=== PATIENT | male | born 1935 | race Caucasian/White ===

== ENCOUNTER 2020-05-19 14:06 | Inpatient (IN) | payer MEDICAID, SELFPAY ==
[~2020-05-19] VITALS: Ht 162.6 cm; Wt 67.1 kg
[2020-05-19 15:29] VITALS: BP 170/70
[2020-05-19 15:30] LABS: BASOPHILS % (AUTO) 0.5 % (0.0-2.0); EOSINOPHILS % (AUTO) 0.1 % (0.0-4.0); HEMATOCRIT 36.3 % (36-52); HEMOGLOBIN 11.6 g/dL (12.0-18.0); LYMPHOCYTES # (AUTO) 0.5 K/uL (2.0-11.5); LYMPHOCYTES % (AUTO) 26.8 % (20.5-51.1); MEAN CORPUSCULAR HEMOGLOBIN 30 pg (27-31); MEAN CORPUSCULAR HGB CONC 32 g/dL (33-37); MEAN CORPUSCULAR VOLUME 92.6 fL (80-94); MONOCYTES # (AUTO) 0.2 K/uL (0.8-1.0); MONOCYTES % (AUTO) 9.8 % (1.7-9.3); NEUTROPHILS # (AUTO) 1.3 K/uL (1.8-7.7); NEUTROPHILS % (AUTO) 62.8 % (42.2-75.2); PLATELET COUNT (AUTO) 110 K/uL (140-450); RED BLOOD CELL COUNT(AUTO) 3.92 MIL/uL (4.20-6.10); RED CELL DISTRIBUTION WIDTH 17.1 % (11.6-13.7); WHITE BLOOD COUNT (AUTO) 2.1 K/uL (4.8-10.8)
[2020-05-19 15:45] LABS: PROTHROMBIN TIME 11.3 secs (10.8-13.4)
[2020-05-19 15:58] LABS: ALBUMIN 2.7 g/dL (3.4-5.0); ANION GAP 11.8 (8-16); ASPARTATE AMINOTRANSFERASE 20 U/L (15-37); CARBON DIOXIDE 32.5 mmol/L (21-32); CHLORIDE 98 mmol/L (98-107); GLUCOSE 90 mg/dL (74-106); POTASSIUM 4.3 mmol/L (3.5-5.1); SODIUM SERUM 138 mmol/L (136-145); TOTAL BILIRUBIN 1.1 mg/dL (0.0-1.0); UREA NITROGEN, BLOOD 36 mg/dL (7-18)
[2020-05-19 16:23] LABS: CREATININE 8.2 mg/dL (0.6-1.3)
[2020-05-19 17:15] LABS: C-REACTIVE PROTEIN QUANT 10.1 mg/dL (0.0-0.9)
[2020-05-19 17:19] LABS: LACTATE DEHYDROGENASE 268 U/L (85-227)
[2020-05-19] MEDS ORDERED: AZITHROMYCIN 500 MG in DEXTROSE 5% 250 ML IV ONE (18:45)
--- NOTE | 2020-05-19 20:10 | NUR ---
PT MOVED TO ER BED 10
[2020-05-19] MEDS ORDERED: DEXAMETHASONE 4 MG/ML VIAL IVP ONE (20:20)
[2020-05-19] MEDS ORDERED: AZITHROMYCIN 500 MG INJ VIAL IV ONE (20:22)
[2020-05-19] MEDS ORDERED: cefTRIAXone 1,000 MG VIAL ONE (20:23)
--- NOTE | 2020-05-19 20:30 | NUR ---
pt does not produce urine, unable to collected urine sample. ERMD made aware.
--- NOTE | 2020-05-19 20:30 | NUR ---
84 y/o male presented to ED c/o SOB and + productive cough x 2 weeks. Pt states is has been progressively getting worse. Pt has not been tested for Covid and denies being around anyone w/ covid. Pt A/O x 4 w/ lethargy. RR even and labored , lung sounds diminished BL bases. per EMS pt is at 82% on Room Air.Current oxygen level 97% on 2L NC. S1S2 noted. Observed BL lower extremity pitting edema. Observed Dialysis shunt on left arm. Pt placed in bed lokced and in lowest position, HOB elevated, side rail x 2 for pt safety. Pt connected to machine milker. VSS. No acute distress noted. pmh: HTN, Hyperlipidemia, ESRD (M/W/F) - rec'vd last dialysis yesterday ax: NKA per pt
--- NOTE | 2020-05-19 22:25 | NUR ---
Covid novel, flu and RSV swabs collected and handed to lab.
--- NOTE | 2020-05-19 23:18 | NUR ---
Per patient authorization spoke w/ granddaughter Angie regarding patient status at this time.
--- NOTE | 2020-05-20 02:00 | NUR ---
Pt sleeping in bed, locked and in lowest position, HOB elevated, side rail x 2 for pt safety. VSS. No acute distress noted.
--- NOTE | 2020-05-20 05:36 | NUR ---
pt sleeping in bed, locked and in lowest position ,hob elevated, side rail x2 for pt safety. Oxygen level 95% on 2L NC. Visible rise and fall of chest. VSS.
[2020-05-20] MEDS ORDERED: ZOLPIDEM 5 MG TAB PO PRN (06:25)
[2020-05-20] MEDS ORDERED: DOCUSATE SODIUM 100 MG GELCAP PO PRN (06:25)
[2020-05-20] MEDS ORDERED: ALBUTEROL HFA MDI 90 MCG/ACTUATION 8 GM INH PRN (06:25)
[2020-05-20] MEDS ORDERED: LORazepam 2 MG/ML VIAL IM/IVP PRN (06:25)
[2020-05-20] MEDS ORDERED: ACETAMINOPHEN 325 MG TAB PO PRN (06:25)
[2020-05-20] MEDS ORDERED: MORPHINE SULFATE 2 MG/ML SYR IVP PRN (06:25)
[2020-05-20] MEDS ORDERED: ONDANSETRON 4 MG/2 ML VIAL IVP PRN (06:25)
[2020-05-20] MEDS ORDERED: NACL 0.9% 1,000 ML IV SCH (06:25)
[2020-05-20] MEDS ORDERED: HYDROcodone/APAP 5/325 MG 1 TAB TAB PO PRN (06:25)
--- NOTE | 2020-05-20 07:25 | NUR ---
Report provided to MARA Purvis for transfer of care.
--- NOTE | 2020-05-20 07:30 | NUR ---
PATIENT HAS BEEN SCREENED AND CATEGORIZED MODERATE NUTRITION RISK. PATIENT WILL BE SEEN WITHIN 3-5 DAYS OF ADMISSION. 05/22/20 - 05/24/20 AMNA WOOD MBA,RD
--- NOTE | 2020-05-20 08:00 | NUR ---
PT RESTING IN BED AT THIS TIME, RESP EVEN AND UNLABORED, VSS
[2020-05-20 08:23] LABS: RSV NEGATIVE (NEGATIVE)
[2020-05-20 08:56] LABS: BASOPHILS % (AUTO) 0.7 % (0.0-2.0); HEMATOCRIT 42.6 % (36-52); HEMOGLOBIN 13.7 g/dL (12.0-18.0); LYMPHOCYTES # (AUTO) 0.6 K/uL (2.0-11.5); LYMPHOCYTES % (AUTO) 14.9 % (20.5-51.1); MEAN CORPUSCULAR HEMOGLOBIN 30 pg (27-31); MEAN CORPUSCULAR HGB CONC 32 g/dL (33-37); MEAN CORPUSCULAR VOLUME 92.1 fL (80-94); MONOCYTES # (AUTO) 0.1 K/uL (0.8-1.0); MONOCYTES % (AUTO) 2.8 % (1.7-9.3); NEUTROPHILS # (AUTO) 3.1 K/uL (1.8-7.7); NEUTROPHILS % (AUTO) 81.6 % (42.2-75.2); PLATELET COUNT (AUTO) 113 K/uL (140-450); RED BLOOD CELL COUNT(AUTO) 4.63 MIL/uL (4.20-6.10); WHITE BLOOD COUNT (AUTO) 3.8 K/uL (4.8-10.8)
[2020-05-20] MEDS: VITAMIN D 400 IU TAB PO SCH (09:00)
[2020-05-20] MEDS: ASCORBIC ACID 500 MG TAB PO SCH (09:00)
[2020-05-20] MEDS ORDERED: ENOXAPARIN 40 MG/0.4 ML SYR SUBQ SCH (09:00)
[2020-05-20] MEDS: AZITHROMYCIN 250 MG TAB PO SCH (09:00)
[2020-05-20 09:24] LABS: ALBUMIN 2.3 g/dL (3.4-5.0); ASPARTATE AMINOTRANSFERASE 23 U/L (15-37); CARBON DIOXIDE 29.2 mmol/L (21-32); CHLORIDE 99 mmol/L (98-107); GLUCOSE 107 mg/dL (74-106); POTASSIUM 5.2 mmol/L (3.5-5.1); SODIUM SERUM 137 mmol/L (136-145); TOTAL BILIRUBIN 0.6 mg/dL (0.0-1.0); UREA NITROGEN, BLOOD 47 mg/dL (7-18)
[2020-05-20 09:28] LABS: PROTHROMBIN TIME 11.4 secs (10.8-13.4)
[2020-05-20 09:33] LABS: CHOL/HDL RATIO 5.2 (1-4.5); FREE T4 (FREE THYROXINE) 1.13 ng/dL (0.76-1.46); MAGNESIUM 2.4 mg/dL (1.8-2.4); THYROID STIMULATING HORMONE 1.3 uIU/mL (0.34-3.74)
--- NOTE | 2020-05-20 10:00 | NUR ---
ASSUMED CARE OF PATIENT FROM MARA PARKS.
--- NOTE | 2020-05-20 10:38 | NUR ---
SOCIAL WORK NOTE: Patient's Orientation Unable To Assess Information Provided By JUANY HAILE - Comments SW WAS UNABLE TO MEET PATIENT AT BEDSIDE DUE TO MEDICAL CONDITION. SW COMPLETED ASSESSMENT WITH PATIENT'S . Accounting Technician, Realtionship and Phone Number JUANY HAILE [phone] VALENCIAELENO HAILE DAUGHTER [phone] Healthcare Power of Developing Machine Tender No Does Patient Have a POLST No Identifying Problems No Social Work Triggers Is A Social Work Consult Needed No Mandate Report Filed No Explanation Of Identifying Problems PATIENT IS AN 84-YEAR-OLD MALE ADMITTED FOR COVID, PNEUMONIA, AND HYPOXIA. PATIENT HAS PMHX OF HYPERTENSION, BPH, ESRD, AND HYPOTHYROIDISM. Admitted From Home Pre-Admission Level Of Functioning Status Independent/Ambulatory Prior Resources/Services Used In Last 12 Months No Prior Resources Used Prior DME No Prior DME Used Dialysis Hemodialysis Name And Phone Number of Dialysis Facility [facility]. ESRD Outpatient Days W Dialysis Comments WAS UNAWARE OF ADDITIONAL INFORMATION. Living Situation Apartment Lives With Family Patient Had Caregiver No Home Support No Caregiver Issues Financial Issues No Known Financial Issue Referral To The Financial Counselor Needed No Factors/Needs No D/C Needs Identified Pt/Rep Participated In Discharge Plan Yes Patient/Family Agress With Discharge Plan Yes Discharge Plan Comments TENTATIVE DISCHARGE PLAN IS FOR PATIENT TO RETURN HOME. DC Plan Status Initiated
[2020-05-20 11:59] LABS: CREATININE 8.9 mg/dL (0.6-1.3)
--- NOTE | 2020-05-20 12:03 | NUR ---
assumed patient care 84 years old male on HD presents to er with gen weakness no cob cp awaiting for admit tele bed.
--- NOTE | 2020-05-20 12:03 | NUR ---
REPORT GIVEN TO MARA CASON. ALL CARE TRASNFERRED.
--- NOTE | 2020-05-20 13:19 | NUR ---
SPOKE TO DR. HANDLEY. DR. HANDLEY AGREED TO BE ON SERVICE AND REQUESTED WE CALL DIALYSIS SERVICE. SUPERVISOR EVAPORATOR NOTIFIED.
--- NOTE | 2020-05-20 16:16 | NUR ---
HD completed 1.4 liter removed tolerated well denies sov cp, resting in [facility].
--- NOTE | 2020-05-20 16:46 | NUR ---
PT MOVED TO BED 10-A.
--- NOTE | 2020-05-20 18:00 | NUR ---
pt moved to new room. connected to cardiac monitoring and pulse oximetry. no other needs at this time.
--- NOTE | 2020-05-20 21:00 | NUR ---
pt in bed resting. no needs at this time. connected to cardiac monitoring.
[2020-05-20] MEDS ORDERED: cefTRIAXone 500 MG VIAL ONE (22:31)
--- NOTE | 2020-05-20 23:49 | NUR ---
awake and alert. no questions or needs at this time. pt is in no distress. connected to 2LPM n/c. VSS.
--- NOTE | 2020-05-21 01:12 | NUR ---
VSS. no apparent needs at this time.
--- NOTE | 2020-05-21 03:30 | NUR ---
REPORT REICEIVED FROM JUSTIN TERRY FOR CONTINUITY OF CARE
--- NOTE | 2020-05-21 05:54 | NUR ---
XRAY AT BEDSIDE
--- NOTE | 2020-05-21 07:11 | NUR ---
REPORT GIVEN TO GHISLAINE TERRY FOR CONTINUITY OF CARE
--- NOTE | 2020-05-21 08:30 | NUR ---
PT LAYING IN BED QUIETLY, WITH EYES CLOSED. AROUSABLE TO NAME. CHEST RISES, AND FALLS SYMMETRICALLY, NO DISTRESS NOTED. VSS. SIDE RAIL X2, BED IN LOW POSITION WILL CONTINUE TO MONITOR.
--- NOTE | 2020-05-21 09:04 | NUR ---
PT ADMINISTERED AM MEDS. PT TOLERATED WELL, WILL CONTINUE TO MONITOR.
[2020-05-21] MEDS: VITAMIN D 400 IU TAB PO SCH (09:45)
[2020-05-21] MEDS: ASCORBIC ACID 500 MG TAB PO SCH (09:46)
[2020-05-21] MEDS: AZITHROMYCIN 250 MG TAB PO SCH (09:46)
--- NOTE | 2020-05-21 10:30 | NUR ---
PT'S GRANDDAUGHTER PRESENTS TO ER WITH QUESTIONS REGARDING PT'S CARE, AND STATUS. GRANDDAUGHTER INFORMED OF PLAN OF CARE FOR PT. SHE STATES SHE WILL CALL LATER FOR ANOTHER UPDATE.
[2020-05-21 10:45] LABS: BASOPHILS % (AUTO) 0.2 % (0.0-2.0); HEMATOCRIT 42.2 % (36-52); HEMOGLOBIN 13.3 g/dL (12.0-18.0); LYMPHOCYTES # (AUTO) 0.4 K/uL (2.0-11.5); LYMPHOCYTES % (AUTO) 8.3 % (20.5-51.1); MEAN CORPUSCULAR HEMOGLOBIN 30 pg (27-31); MEAN CORPUSCULAR HGB CONC 32 g/dL (33-37); MEAN CORPUSCULAR VOLUME 93.8 fL (80-94); MONOCYTES # (AUTO) 0.3 K/uL (0.8-1.0); MONOCYTES % (AUTO) 6.1 % (1.7-9.3); NEUTROPHILS # (AUTO) 4.5 K/uL (1.8-7.7); NEUTROPHILS % (AUTO) 85.4 % (42.2-75.2); PLATELET COUNT (AUTO) 149 K/uL (140-450); RED CELL DISTRIBUTION WIDTH 17.4 % (11.6-13.7); WHITE BLOOD COUNT (AUTO) 5.3 K/uL (4.8-10.8)
[2020-05-21 11:18] LABS: ANION GAP 14.2 (8-16); CARBON DIOXIDE 26.8 mmol/L (21-32); CHLORIDE 100 mmol/L (98-107); GLUCOSE 120 mg/dL (74-106); SODIUM SERUM 136 mmol/L (136-145); UREA NITROGEN, BLOOD 53 mg/dL (7-18)
[2020-05-21 11:21] LABS: MAGNESIUM 1.6 mg/dL (1.8-2.4); PHOSPHORUS 5.7 mg/dL (2.5-4.9)
[2020-05-21 11:22] LABS: CREATININE 8.5 mg/dL (0.6-1.3); LACTATE DEHYDROGENASE 293 U/L (85-227)
--- NOTE | 2020-05-21 11:27 | NUR ---
PT APPEARS TO BE SLEEPING, CHEST RISES, AND FALLS SYMMETRICALLY. NO DISTRESS NOTED. VSS. SIDE RAIL X2, BED IN LOW POSITION, WILL CONTINUE TO MONITOR.
[2020-05-21] MEDS ORDERED: MAG SULF 2000 MG/WATER PREMIX 50 ML IV SCH (12:00)
--- NOTE | 2020-05-21 12:32 | NUR ---
PT RESTING QUIETLY IN BED. VSS, R/R EQUAL, AND UNLABORED. NO DISTRESS VERBALIZED AT THIS TIME. SIDE RAIL X2, BED IN LOW POSITION, WILL CONTINUE TO MONITOR.
--- NOTE | 2020-05-21 14:06 | NUR ---
PT REQUESTED TO USE BED GRANADOS. LINEN AND GOWN CHANGED, AND [facility] PROVIDED.
--- NOTE | 2020-05-21 14:16 | NUR ---
PT PROVIDED LUNCH TRAY. VSS, R/R EQUAL, AND UNLABORED. BED IN LOW POSITION, SIDE RAIL X2 WILL CONTINUE TO MONITOR
--- NOTE | 2020-05-21 19:00 | NUR ---
pt given dinner tray
--- NOTE | 2020-05-21 19:20 | NUR ---
Report received from MARA Rodriguez for continuation of care.
--- NOTE | 2020-05-21 19:52 | NUR ---
Pt eating dinner, no acute distress noted . VSS. No acute distress noted.
--- NOTE | 2020-05-21 20:30 | NUR ---
Pt ate 80% of dinner.
[2020-05-21] MEDS ORDERED: cefTRIAXone 1,000 MG VIAL ONE (20:37)
--- NOTE | 2020-05-22 00:35 | NUR ---
pt sleeping in bed, locked and in lowest position, HOB elevated, side rail x2 for pt safety. VSS . Visible rise and fall of chest. RR even and unlabored. No acute distress noted.
--- NOTE | 2020-05-22 02:37 | NUR ---
Pt sleeping in bed, locked and in lowest position, HOB elevated, side rail x2 for pt safety. VSS. No acute distress noted.
--- NOTE | 2020-05-22 04:00 | NUR ---
Pt resting in bed, nasal cannula readjusted on pt. VSS. Oxygen level 94% on 2L, NC. No acute distress noted at this time.
--- NOTE | 2020-05-22 07:22 | NUR ---
Report provided to MARA Seth for transfer of care.
[2020-05-22] MEDS: VITAMIN D 400 IU TAB PO SCH (08:26)
[2020-05-22] MEDS: ASCORBIC ACID 500 MG TAB PO SCH (08:26)
[2020-05-22] MEDS: AZITHROMYCIN 250 MG TAB PO SCH (08:27)
--- NOTE | 2020-05-22 09:29 | NUR ---
PT RESTING WITH EYES CLOSED, BREATHING EVEN AND UNLABORED. WILL CONTINUE TO MONITOR.
--- NOTE | 2020-05-22 10:13 | NUR ---
PT ATE BREAKFAST AT THIS TIME
[2020-05-22 10:45] LABS: BASOPHILS % (AUTO) 0.2 % (0.0-2.0); HEMATOCRIT 40.7 % (36-52); HEMOGLOBIN 13.1 g/dL (12.0-18.0); LYMPHOCYTES # (AUTO) 0.5 K/uL (2.0-11.5); LYMPHOCYTES % (AUTO) 8.3 % (20.5-51.1); MEAN CORPUSCULAR HEMOGLOBIN 30 pg (27-31); MEAN CORPUSCULAR HGB CONC 32 g/dL (33-37); MEAN CORPUSCULAR VOLUME 92.1 fL (80-94); MONOCYTES # (AUTO) 0.3 K/uL (0.8-1.0); MONOCYTES % (AUTO) 5.3 % (1.7-9.3); NEUTROPHILS # (AUTO) 4.9 K/uL (1.8-7.7); NEUTROPHILS % (AUTO) 86.2 % (42.2-75.2); PLATELET COUNT (AUTO) 154 K/uL (140-450); RED BLOOD CELL COUNT(AUTO) 4.41 MIL/uL (4.20-6.10); RED CELL DISTRIBUTION WIDTH 17.3 % (11.6-13.7); WHITE BLOOD COUNT (AUTO) 5.7 K/uL (4.8-10.8)
--- NOTE | 2020-05-22 11:18 | NUR ---
TALKED TO DAUGHTER VALENCIA TO GIVE UPDATES ABOUT PT
[2020-05-22 11:29] LABS: ALBUMIN 2.4 g/dL (3.4-5.0); ANION GAP 12.2 (8-16); ASPARTATE AMINOTRANSFERASE 24 U/L (15-37); CARBON DIOXIDE 29.8 mmol/L (21-32); CHLORIDE 99 mmol/L (98-107); GLUCOSE 100 mg/dL (74-106); LACTATE DEHYDROGENASE 268 U/L (85-227); MAGNESIUM 2.3 mg/dL (1.8-2.4); SODIUM SERUM 136 mmol/L (136-145); TOTAL BILIRUBIN 0.5 mg/dL (0.0-1.0)
[2020-05-22 11:47] LABS: CREATININE 9.3 mg/dL (0.6-1.3); UREA NITROGEN, BLOOD 67 mg/dL (7-18)
--- NOTE | 2020-05-22 13:19 | NUR ---
+ covid result received from lab. Copy given to infection control
[2020-05-22] MEDS: hydrALAZINE 25 MG TAB PO SCH (13:43)
--- NOTE | 2020-05-22 13:51 | NUR ---
PT ALERT AND AWAKE, BREATHING EVEN AND UNLABORED. PT ATE LUNCH
--- NOTE | 2020-05-22 16:52 | NUR ---
DC PLANNIN YRS OLD MALE PATIENT WAS ADMITTED FROM HOME WITH A DX OF COVID PNEUMONIA, HYPOXIA. RAPID AND PCR COVID TEST POSITIVE. STARTED COVID TREATMENT , ROCEPHIN AND AZITHROMYCIN. O2 SAT 93% WITH O2 2L/NC. CONSULTED WITH PULMO , ID AND NEPHRO FOR HEMODIALYSIS. DC PLAN TO GO HOME WHEN STABLE CM TO FOLLOW. Addendum: 05/22/20 at 1705 by Meg Ahn CM DC HEAD BATCHER: SPOKE TO DEION AT [facility] [place] [phone] TO NOTIFY THEM PATIENT IS COVID POSITIVE. THEY ARE AWARE THEY PROVIDED ME WITH PATIENTS NEW CHAIR TIME AT 6:00 PM ON Addendum: 05/25/20 at 1018 by Meg Ahn CM DC HEAD BATCHER: RECEIVE ORDER FOR HOME O2 FAXED TO [facility]. CALLED FROY MARTINEZ NO ANSWER LEFT A VOICEMAIL WILL FOLLOW UP. Addendum: 05/25/20 at 1705 by Meg Ahn CM DC HEAD BATCHER: SPOKE TO KYRA FROM [facility] [phone] OPT 3 SHE IS WAITING ON AUTH FROM [facility]. SPOKE TO MICHELLE AT [facility] [phone] [phone] SHE STATED THAT SHE GAVE VERBAL [facility]. [facility] CAN NOT DISPATCH UNTIL THEY RECEIVE HARD COPY FROM [facility]. Addendum: 05/28/20 at 1345 by Ruthy Bradley RN DC PLANNING: PT HAS A DC ORDER WITH HOME HEALTH FOR IV ABX CALLED [facility] SPOKE WITH FRANCE MCDUFFIE STATED TO FAX IT TO [facility] AND FAXED. FROY TO FOLLOW Addendum: 05/28/20 at 1406 by Meg Ahn CM REJI GÓMEZ: SPOKE TO BRAYAN AT [facility] [phone] HIS PHARMACIST IS REVIEWING IT AND WILL BE CONTACTING ME BACK SHORTLY. I PROVIDED HIM WITH THE NUMBER FOR [facility] Addendum: 05/28/20 at 1456 by Meg Ahn CM REJI GÓMEZ: RECEIVED A CALL FROM BRAYAN AT [facility]. EVERY IS SET UP FOR PATIENT IV ABX WILL BE DELIVERED TO PATIENTS HOME TONIGHT. Addendum: 05/28/20 at 1502 by Meg Mayeda CM DC DALIA: NOTIFIED CHARGE NURSE CARLO THAT EVERYTHING HAS BEEN SET UP. NOTIFIED DR. MCGREGOR WELL. HE STATED PT CAN DC. Addendum: 05/28/20 at 1510 by Meg Ahn CM REJI GÓMEZ: SPOKE TO JENNIFER AT [facility] [phone] TO CONFIRM CHAIR TIME . SHE IS GOING TO CONTACT ME BACK Addendum: 05/28/20 at 1516 by Meg Ahn CM DC HEAD BATCHER: RECEIVED A CALL BACK FROM MICHELLE AT [facility] [place]. PATIENTS CHAIR TIME HAS BEEN MOVED TO ,SAT AT 7:15 PM IN [place]. [id number] [facility] [place] [id number]. [phone]. NOTIFIED [facility] THEY WILL BE OUT AT PATIENTS [place] TOMORROW FOR FIRST DOES OF ABX Addendum: 05/28/20 at 1542 by Meg Ahn CM DC HEAD BATCHER: NOTIFIED PATIENTS ABOUT PATIENT IV ABX THAT WILL BE DELIVERED TONIGHT. ALSO DISCUSSED PATIENTS NEW CHAIR TIME AND LOCATION
--- NOTE | 2020-05-22 19:18 | NUR ---
REPORT GIVEN TO KEESHA TERRY, CHUNGSNFDIRK OF CARE AT THIS TIME
--- NOTE | 2020-05-22 19:40 | NUR ---
PT TX FROM BED 10 TO BED 1, RECONNECTED TO MONITOR
--- NOTE | 2020-05-22 19:40 | NUR ---
REPORT RECEIVED FROM MARA ESPARZA AND [facility].
--- NOTE | 2020-05-22 19:49 | NUR ---
DIAYLSIS NURSE AT BEDSIDE
[2020-05-22] MEDS: carvediloL 12.5 MG TAB PO SCH (21:00)
--- NOTE | 2020-05-22 21:11 | NUR ---
MEDS DELAYED D/T PT GETTING DIALYSIS
--- NOTE | 2020-05-22 21:42 | NUR ---
DIALYSIS COMPLETE, 3L OF FLUID OUT
[2020-05-22] MEDS ORDERED: cefTRIAXone 1,000 MG VIAL ONE (22:12)
[2020-05-22] MEDS ORDERED: carvediloL 6.25 MG TAB ONE (22:13)
--- NOTE | 2020-05-22 23:12 | NUR ---
PT LAYING IN BED ASLEEP AT THIS TIME. VSS. BED RAILS UP AND BED IN LOWEST POSITION FOR SAFETY.
--- NOTE | 2020-05-23 01:40 | NUR ---
PT SLEEPING IN BED. PT CONNECTED TO MONITOR, ALL VSS.
--- NOTE | 2020-05-23 05:32 | NUR ---
Patient appears to be resting comfortably in bed. Vital Signs within normal limits. Respirations even and unlabored.
[2020-05-23] MEDS: LEVOTHYROXINE 0.025 MG TAB PO SCH (07:30)
--- NOTE | 2020-05-23 07:57 | NUR ---
assumed patient care 10 years old male with covid positive on HD last treatment yesterday in ED, no sob occasional non congested cough no acute resp changes awaiting for admit bed.
[2020-05-23] MEDS: carvediloL 12.5 MG TAB PO SCH ×2 (09:00→20:22)
[2020-05-23] MEDS: amLODIPine 5 MG TAB PO SCH (09:00)
[2020-05-23] MEDS: VITAMIN D 400 IU TAB PO SCH (09:00)
[2020-05-23] MEDS: hydrALAZINE 25 MG TAB PO SCH (09:00)
[2020-05-23] MEDS: TAMSULOSIN 0.4 MG CAP PO SCH (09:00)
[2020-05-23] MEDS: ASCORBIC ACID 500 MG TAB PO SCH (09:00)
[2020-05-23] MEDS: AZITHROMYCIN 250 MG TAB PO SCH (09:00)
[2020-05-23] MEDS ORDERED: carvediloL 6.25 MG TAB ONE (11:09)
[2020-05-23] MEDS ORDERED: hydrALAZINE 10 MG TAB ONE (11:10)
--- NOTE | 2020-05-23 13:56 | NUR ---
PATIENT REASSESS no acute resp distress, no congestion, occasional dry cough noted.
[2020-05-23 15:03] LABS: BASOPHILS % (AUTO) 0.8 % (0.0-2.0); HEMATOCRIT 41.5 % (36-52); HEMOGLOBIN 13.3 g/dL (12.0-18.0); LYMPHOCYTES # (AUTO) 0.4 K/uL (2.0-11.5); LYMPHOCYTES % (AUTO) 7.1 % (20.5-51.1); MEAN CORPUSCULAR HEMOGLOBIN 30 pg (27-31); MEAN CORPUSCULAR HGB CONC 32 g/dL (33-37); MEAN CORPUSCULAR VOLUME 91.9 fL (80-94); MONOCYTES # (AUTO) 0.2 K/uL (0.8-1.0); MONOCYTES % (AUTO) 4.3 % (1.7-9.3); NEUTROPHILS # (AUTO) 4.6 K/uL (1.8-7.7); NEUTROPHILS % (AUTO) 87.8 % (42.2-75.2); PLATELET COUNT (AUTO) 158 K/uL (140-450); RED BLOOD CELL COUNT(AUTO) 4.52 MIL/uL (4.20-6.10); RED CELL DISTRIBUTION WIDTH 16.9 % (11.6-13.7); WHITE BLOOD COUNT (AUTO) 5.3 K/uL (4.8-10.8)
[2020-05-23 15:34] LABS: ALBUMIN 2.5 g/dL (3.4-5.0); ANION GAP 14.2 (8-16); ASPARTATE AMINOTRANSFERASE 32 U/L (15-37); CARBON DIOXIDE 28.4 mmol/L (21-32); CHLORIDE 98 mmol/L (98-107); GLUCOSE 122 mg/dL (74-106); LACTATE DEHYDROGENASE 248 U/L (85-227); MAGNESIUM 2.1 mg/dL (1.8-2.4); PHOSPHORUS 3.9 mg/dL (2.5-4.9); POTASSIUM 4.6 mmol/L (3.5-5.1); SODIUM SERUM 136 mmol/L (136-145); TOTAL BILIRUBIN 0.5 mg/dL (0.0-1.0)
[2020-05-23 16:15] LABS: CREATININE 8.3 mg/dL (0.6-1.3); UREA NITROGEN, BLOOD 60 mg/dL (7-18)
--- NOTE | 2020-05-23 18:01 | NUR ---
patient alert, no sob denies pain tolerated po well.
--- NOTE | 2020-05-23 18:31 | NUR ---
report endorsed to charge nurse Ray all questions answered.
--- NOTE | 2020-05-23 19:30 | NUR ---
Report received from MARA Gotti for continuation of care.
--- NOTE | 2020-05-23 20:22 | NUR ---
Pt heart rate 57 bpm , Carvidelol held per parameters .
--- NOTE | 2020-05-23 23:12 | NUR ---
per pt authorization spoke w/ daughter Merlyn , updated her on pt status.
--- NOTE | 2020-05-24 | NUR ---
Pt resting in bed, locked and in lowest position, HOB elevated, side rail x 2 for pt safety. VSS. No acute distress noted.
--- NOTE | 2020-05-24 04:10 | NUR ---
Pt sleeping, visible rise and fall of chest. RR even and unlabored. VSS. No acute distress noted.
[2020-05-24] MEDS: LEVOTHYROXINE 0.025 MG TAB PO SCH (07:30)
--- NOTE | 2020-05-24 07:32 | NUR ---
Report given to MARA Urrutia for transfer of care.
[2020-05-24] MEDS: ASCORBIC ACID 500 MG TAB PO SCH (09:00)
[2020-05-24] MEDS: TAMSULOSIN 0.4 MG CAP PO SCH (09:00)
[2020-05-24] MEDS: hydrALAZINE 25 MG TAB PO SCH (09:00)
[2020-05-24] MEDS: amLODIPine 5 MG TAB PO SCH (09:00)
[2020-05-24] MEDS: carvediloL 12.5 MG TAB PO SCH ×2 (09:00→20:27)
[2020-05-24] MEDS: VITAMIN D 400 IU TAB PO SCH (09:00)
[2020-05-24 10:30] LABS: BASOPHILS % (AUTO) 0.4 % (0.0-2.0); HEMATOCRIT 41.8 % (36-52); HEMOGLOBIN 13.6 g/dL (12.0-18.0); LYMPHOCYTES # (AUTO) 0.4 K/uL (2.0-11.5); LYMPHOCYTES % (AUTO) 11.4 % (20.5-51.1); MEAN CORPUSCULAR HEMOGLOBIN 30 pg (27-31); MEAN CORPUSCULAR HGB CONC 33 g/dL (33-37); MEAN CORPUSCULAR VOLUME 91.4 fL (80-94); MONOCYTES # (AUTO) 0.2 K/uL (0.8-1.0); MONOCYTES % (AUTO) 6.5 % (1.7-9.3); NEUTROPHILS % (AUTO) 81.7 % (42.2-75.2); PLATELET COUNT (AUTO) 159 K/uL (140-450); RED BLOOD CELL COUNT(AUTO) 4.58 MIL/uL (4.20-6.10); RED CELL DISTRIBUTION WIDTH 16.9 % (11.6-13.7); WHITE BLOOD COUNT (AUTO) 3.6 K/uL (4.8-10.8)
[2020-05-24 10:56] LABS: ANION GAP 15.7 (8-16); CARBON DIOXIDE 26.9 mmol/L (21-32); CHLORIDE 98 mmol/L (98-107); GLUCOSE 145 mg/dL (74-106); POTASSIUM 4.6 mmol/L (3.5-5.1); SODIUM SERUM 136 mmol/L (136-145)
[2020-05-24 11:25] LABS: CREATININE 9.4 mg/dL (0.6-1.3); UREA NITROGEN, BLOOD 73 mg/dL (7-18)
[2020-05-24 11:30] VITALS: BP 128/62
--- NOTE | 2020-05-24 11:30 | NUR ---
TRANSFERRED TO TELE FLOOR RM 122A. REPORT GIVEN TO MILVIA TERRY
--- NOTE | 2020-05-24 14:04 | NUR ---
05/24/20 RD INITIAL ASSESSMENT COMPLETED PLEASE REFER TO NUTRITION ASSESSMENT UNDER CARE ACTIVITY FOR ESTIMATED NUTRITIONAL NEEDS. RD RECOMMENDATIONS: 1. RECOMMEND CONTINUE RENAL DIET 2. F/U 3-5 DAYS; MODERATE RISK AMNA WOOD MBA, RD
--- NOTE | 2020-05-24 15:13 | NUR ---
PATIENT AWAKE, SITTING IN BED. DENIES PAIN. ON 2L NC. SAFETY MEASURES IN PLACE. WILL CONTINUE TO MONITOR.
[2020-05-24 16:00] VITALS: BP 122/52
--- NOTE | 2020-05-24 17:14 | NUR ---
PATIENT ASLEEP IN BED, O2 SAT 93% WITH 3L NC. NO ACUTE DISTRESS NOTED. SAFETY MEASURES IN PLACE. WILL CONTINUE TO MONITOR.
--- NOTE | 2020-05-24 19:20 | NUR ---
ENDORSED PATIENT TO SECURITY CONSULTANT RN FOR CONTINUITY OF CARE. PATIENT ASLEEP WITH 2L NC, IN STABLE CONDITION.
--- NOTE | 2020-05-24 19:21 | NUR ---
RECEIVED REPORT FROM DAY SHIFT NURSE. PT IN BED RESTING. PT AAOX4, ABLE TO MAKE NEEDS KNOWN. PT ON O2 2LPM/NC, NOT IN DISTRESS. ABDOMEN IS SOFT AND NON-TENDER, ACTIVE BOWEL SOUNDS NOTED. SKIN IS WARM, DRY, AND INTACT. PT DENIES ANY PAIN OR DISCOMFORT AT THIS TIME. NO REQUESTS MADE. PT KEPT COMFORTABLE. SAFETY MEASURES IN PLACE. CALL LIGHT WITHIN REACH. WILL CONTINUE TO MONITOR.
[2020-05-24 20:00] VITALS: BP 145/63
--- NOTE | 2020-05-24 20:27 | NUR ---
VS STABLE. SCHEDULED MEDS GIVEN ORDERED. PT NOT IN DISTRESS. O2 IN PLACE. DENIES ANY PAIN OR DISCOMFORT AT THIS TIME. NO REQUESTS MADE. CALL LIGHT WITHIN REACH. WILL CONTINUE TO MONITOR.
--- NOTE | 2020-05-24 22:13 | NUR ---
PT ASLEEP. O2 IN PLACE. PT NOT IN DISTRESS. PT KEPT SAFE AND COMFORTABLE. CALL LIGHT WITHIN REACH. WILL CONTINUE TO MONITOR.
[2020-05-25] VITALS: BP 149/54
--- NOTE | 2020-05-25 00:19 | NUR ---
VS STABLE. PERINEAL CARE GIVEN WITH ASSISTANCE OF MACHINE JOINT CUTTER. PT TOLERATED CARE PROVIDED. CALL LIGHT WITHIN REACH, WILL CONTINUE TO MONITOR.
--- NOTE | 2020-05-25 02:22 | NUR ---
ASLEEP. VISIBLE CHEST RISE AND FALL NOTED. NO S/SX OF DISTRESS NOTED. O2 IN PLACE. SAFETY MEASURES IN PLACE. WILL CONTINUE TO MONITOR.
[2020-05-25 04:00] VITALS: BP 122/65
--- NOTE | 2020-05-25 04:28 | NUR ---
VS STABLE. PT NOT IN DISTRESS, O2 IN PLACE. DENIES ANY PAIN OR DISCOMFORT. NO REQUESTS MADE. CALL LIGHT WITHIN REACH. WILL CONTINUE TO MONITOR.
[2020-05-25] MEDS: LEVOTHYROXINE 0.025 MG TAB PO SCH (07:00)
--- NOTE | 2020-05-25 07:30 | NUR ---
ENDORSED TO ADVERTISING DIRECTOR NURSE FOR CONTINUITY OF CARE
--- NOTE | 2020-05-25 07:32 | NUR ---
RECEIVED REPORT FROM GOVERNOR ASSEMBLER HYDRAULIC RN FOR CONTINUITY OF CARE. PATIENT ASLEEP IN RIGHT LATERAL POSITION. RESPIRATORY EVEN AND UNLABORED WITH 2L NC. NO ACUTE DISTRESS NOTED. SAFETY MEASURES IN PLACE, WILL CONTINUE TO MONITOR.
[2020-05-25 07:56] LABS: BASOPHILS % (AUTO) 0.4 % (0.0-2.0); HEMATOCRIT 41.1 % (36-52); HEMOGLOBIN 13.5 g/dL (12.0-18.0); LYMPHOCYTES # (AUTO) 0.5 K/uL (2.0-11.5); MEAN CORPUSCULAR HEMOGLOBIN 30 pg (27-31); MEAN CORPUSCULAR HGB CONC 33 g/dL (33-37); MEAN CORPUSCULAR VOLUME 90.6 fL (80-94); MONOCYTES # (AUTO) 0.2 K/uL (0.8-1.0); MONOCYTES % (AUTO) 5.8 % (1.7-9.3); NEUTROPHILS # (AUTO) 2.9 K/uL (1.8-7.7); NEUTROPHILS % (AUTO) 80.8 % (42.2-75.2); PLATELET COUNT (AUTO) 180 K/uL (140-450); RED BLOOD CELL COUNT(AUTO) 4.54 MIL/uL (4.20-6.10); RED CELL DISTRIBUTION WIDTH 16.6 % (11.6-13.7); WHITE BLOOD COUNT (AUTO) 3.6 K/uL (4.8-10.8)
[2020-05-25 08:00] VITALS: BP 177/71
[2020-05-25 08:20] LABS: ALBUMIN 2.4 g/dL (3.4-5.0); ANION GAP 17.1 (8-16); ASPARTATE AMINOTRANSFERASE 22 U/L (15-37); CARBON DIOXIDE 23.1 mmol/L (21-32); CHLORIDE 98 mmol/L (98-107); GLUCOSE 103 mg/dL (74-106); PHOSPHORUS 5.2 mg/dL (2.5-4.9); POTASSIUM 5.2 mmol/L (3.5-5.1); SODIUM SERUM 133 mmol/L (136-145); TOTAL BILIRUBIN 0.5 mg/dL (0.0-1.0)
[2020-05-25 08:46] LABS: UREA NITROGEN, BLOOD 89 mg/dL (7-18)
[2020-05-25 08:47] LABS: CREATININE 10.2 mg/dL (0.6-1.3)
[2020-05-25] MEDS: hydrALAZINE 25 MG TAB PO SCH (09:00)
[2020-05-25] MEDS: carvediloL 12.5 MG TAB PO SCH ×2 (09:00→21:35)
[2020-05-25] MEDS: amLODIPine 5 MG TAB PO SCH (09:00)
[2020-05-25] MEDS: ASCORBIC ACID 500 MG TAB PO SCH (09:32)
[2020-05-25] MEDS: VITAMIN D 400 IU TAB PO SCH (09:32)
[2020-05-25] MEDS: TAMSULOSIN 0.4 MG CAP PO SCH (09:33)
--- NOTE | 2020-05-25 09:35 | NUR ---
SCHEDULED MEDICATIONS GIVEN. BP MEDS HOLD FOR DIALYSIS TODAY. SAFETY MEASURES IN PLACE, WILL CONTINUE TO MONITOR.
--- NOTE | 2020-05-25 11:22 | NUR ---
DIALYSIS NURSE MARYAM CAME AND STARTED DIALYSIS. IN STABLE CONDITION. WILL CONTINUE TO MONITOR.
[2020-05-25 12:00] VITALS: BP 93/50
--- NOTE | 2020-05-25 13:20 | NUR ---
DIALYSIS FINISHED WITH 600ML OUTPUT. PATIENT IN STABLE CONDITION. WILL CONTINUE TO MONITOR.
--- NOTE | 2020-05-25 14:15 | NUR ---
NOTED THAT PATIENT HAS SUPRAPUBIC CATHETER, WITH NO DRAINAGE BAG. CONNECTED WITH DRAINAGE BAG. DARK BROWNISH URINE NOTED. SN SPOKE WITH PATIENT'S DAUGHTER, STATED THAT PATIENT WAS INSERTED THE SUPRAPUBIC CATHETER ABOUT 3 YEARS AGO, AND GOES TO [place] TO CHANGE THE SUPRAPUBIC CATHETER MONTHLY WITH [facility] UROLOGIC DR. AUGUSTUS SANON, AND DR. FAISAL JONES. ADDRESS: [address] [place] [address], [address], [place], [facility]. TEL [phone], FAX [phone]. INFORMED DR. STEPHENSON. WILL CONTINUE TO MONITOR.
--- NOTE | 2020-05-25 15:30 | NUR ---
CHECKED THE PATIENT. UPDATED PATIENT'S DAUGHTER REGARDING PATIENT'S CONDITION. BROUGHT PATIENT MILK PER PATIENT'S REQUESTS. SAFETY MEASURES IN PLACE, WILL CONTINUE TO MONITOR.
[2020-05-25 16:00] VITALS: BP 153/65
--- NOTE | 2020-05-25 16:00 | NUR ---
UA CULTURE COLLECTED, CLOUDY DARK BROWNISH COLOR AND WITH STRONG FOUL SMELL. DR. STEPHENSON WAS INFORMED. UROLOGY CONSULT. WILL FOLLOW UP.
--- NOTE | 2020-05-25 16:30 | NUR ---
TRYING TO WEAN OFF THE OXYGEN. O2 SAT DESATURATED TO 80%. ALSO PATIENT HAS OCCASIONAL DRY COUGH. PUT BACK OXYGEN 2L NC, O2 SAT 90-91%. AT THIS POINT, PATIENT DOES NOT TOLERATED IN ROOM AIR. KEEP 2L NC, AND WILL CONTINUE TO MONITOR.
[2020-05-25 17:20] LABS: APPEARANCE,URINE CLOUDY (CLEAR); BILIRUBIN,URINE 2+ (NEGATIVE); BLOOD, URINE 3+ (NEGATIVE); COLOR,URINE BROWN (YELLOW); LEUKOCYTE ESTERASE ,URINE 2+ (NEGATIVE); NITRITE, URINE POSITIVE (NEGATIVE); PH,URINE 8.5 (5.0-9.0); UGLUCOSE NEGATIVE (NEGATIVE)
[2020-05-25] MEDS ORDERED: DEXA6TAB1 PO (18:04)
[2020-05-25 18:21] LABS: RBC,URINE >100 /HPF (0-5); WBC,URINE 60-80 /HPF (0-5)
--- NOTE | 2020-05-25 19:46 | NUR ---
ENDORSED PATIENT TO HUMAN RESOURCES EXECUTIVE ASSISTANT RN FOR CONTINUITY OF CARE. PATIENT IN STABLE CONDITION WITH 2L NC.
[2020-05-25 20:00] VITALS: BP 168/82
[2020-05-26] VITALS: BP 167/72
[2020-05-26 04:00] VITALS: BP 173/78
[2020-05-26 06:23] LABS: BASOPHILS % (AUTO) 0.2 % (0.0-2.0); HEMATOCRIT 41.2 % (36-52); HEMOGLOBIN 13.4 g/dL (12.0-18.0); LYMPHOCYTES # (AUTO) 0.3 K/uL (2.0-11.5); LYMPHOCYTES % (AUTO) 8.3 % (20.5-51.1); MEAN CORPUSCULAR HEMOGLOBIN 30 pg (27-31); MEAN CORPUSCULAR HGB CONC 33 g/dL (33-37); MEAN CORPUSCULAR VOLUME 92.5 fL (80-94); MONOCYTES # (AUTO) 0.1 K/uL (0.8-1.0); MONOCYTES % (AUTO) 1.5 % (1.7-9.3); NEUTROPHILS # (AUTO) 3.5 K/uL (1.8-7.7); PLATELET COUNT (AUTO) 169 K/uL (140-450); RED BLOOD CELL COUNT(AUTO) 4.46 MIL/uL (4.20-6.10); WHITE BLOOD COUNT (AUTO) 3.9 K/uL (4.8-10.8)
[2020-05-26] MEDS: LEVOTHYROXINE 0.025 MG TAB PO SCH (07:01)
[2020-05-26 07:12] LABS: ANION GAP 16.9 (8-16); CARBON DIOXIDE 26.1 mmol/L (21-32); CHLORIDE 98 mmol/L (98-107); GLUCOSE 111 mg/dL (74-106); SODIUM SERUM 136 mmol/L (136-145)
--- NOTE | 2020-05-26 07:30 | NUR ---
RECEIVED REPORT FROM AIRCRAFT AVIONICS TECHNICIAN NURSE. BEDSIDE ASSESSMENT DONE, PT AWAKE ALERT ABLE TO LET NEEDS KNOWN, PT ON 2LPM O2 VIA NC, NO SOB NOTED, IV TO R FA 24G AND R UA 18G SL, AV FISTULA TO LEFT ARM, SUPRA PUBIC CATH IN PLACE DRAINING TO GRAVITY, INITIAL ASSESSMENT DONE, ALL SAFETY PRECAUTION MET, CALL LIGHT WITHIN REACH, WILL CONTINUE TO MONITOR.
[2020-05-26 08:00] VITALS: BP 174/73
--- NOTE | 2020-05-26 08:00 | NUR ---
DR MARTINEZ AT BEDSIDE, PER DR EQUIPMENT NOT READY, HE WILL CHANGE PT SUPRAPUBIC CATH TOMORROW. WILL ENDORSE.
[2020-05-26] MEDS: carvediloL 12.5 MG TAB PO SCH ×2 (09:00→21:12)
[2020-05-26 09:09] LABS: UREA NITROGEN, BLOOD 70 mg/dL (7-18)
[2020-05-26 09:10] LABS: CREATININE 8.4 mg/dL (0.6-1.3)
--- NOTE | 2020-05-26 09:23 | NUR ---
ANTHONY FROM LAB REPORTED CRITICAL LAB VALUES BUN 70. RELAYED TO DR. STEPHENSON.
[2020-05-26] MEDS: amLODIPine 5 MG TAB PO SCH (10:06)
[2020-05-26] MEDS: ASCORBIC ACID 500 MG TAB PO SCH (10:07)
[2020-05-26] MEDS: VITAMIN D 400 IU TAB PO SCH (10:07)
[2020-05-26] MEDS: hydrALAZINE 25 MG TAB PO SCH (10:07)
[2020-05-26] MEDS: TAMSULOSIN 0.4 MG CAP PO SCH (10:08)
[2020-05-26 12:00] VITALS: BP 130/61
--- NOTE | 2020-05-26 12:19 | NUR ---
RECEIVED A CALL FROM [facility] INFORMING ME OF CRITICAL LAB RESULTS FOR CREA 8.4. DR. STEPHENSON MADE AWARE. Addendum: 05/26/20 at 1224 by Nelli Mares CALL WAS RECEIVED AT 1140. Addendum: 05/27/20 at 1156 by Ruthy Bradley RN DISCHARGE PLANNING: PT WAS ADMITTED FROM HOME WITH A DX OF COVID, PNEUMONIA. RAPID AND PCR IS POSITIVE , O2 2L/NC SATING 95. PT HAS HOME O2 2 ORDER AND IT HAS BEEN DELIVERED AT THE HOSPITAL AND HOME. SEEN BY ID, ELYSE, NEPHRO AND UROLOGIST. SCHEDULED FOR DR MARTINEZ TO CHANGE THE SUPRAPUBIC CATHETER . DC PLAN TO GO HOME WHEN STABLE. Addendum: 05/28/20 at 0922 by Meg Ahn CM DC PROJECT ECONOMIST: PATIENT HAS A FOLLOW UP APPT WITH UROLOGIST FAISAL LIRIANO [phone]. APPT IS ON 06/11/2020 AT 10:00 AM. [address] [place] [id number] Addendum: 05/28/20 at 1325 by Meg Ahn CM DC PROJECT ECONOMIST: RECEIVED ORDER FOR IV ABX FAXED TO [facility]. FROY SPOKE TO LEONEL AT [facility] SHE ASKED US TO FAX TO [facility] [phone]
--- NOTE | 2020-05-26 15:20 | NUR ---
DR STEPHENSON AT BEDSIDE, NOTIFIED DR STEPHENSON PT IS STILL IN NEED OF SUPRAPUBIC CATH CHANGE BY DR MARTINEZ TOMORROW, DR STEPHENSON STATED UNDERSTANDING THAT PT WILL BE STAYING 1 MORE NIGHT
[2020-05-26 16:00] VITALS: BP 102/54
--- NOTE | 2020-05-26 16:20 | NUR ---
CALLED [facility] FOR ORDER OF HEMODIALYSIS TOMORROW.
[2020-05-26] MEDS: levoFLOXacin 500 MG TAB PO SCH (17:52)
--- NOTE | 2020-05-26 19:20 | NUR ---
RECEIVED REPORT FROM DAYAMI, PT A&O X4, VERBAL, CZECH SPEAKING, AMBULATION NOT OBSERVED, NO SOB/ DISTRESS ON O2 @2LPM/NC, NO C/O PAIN AT THIS TIME, VSS.
--- NOTE | 2020-05-26 19:20 | NUR ---
ENDORSED PT TO LOOM BLOWER NURSE FOR CONTINUOUS OF CARE.
[2020-05-26 20:00] VITALS: BP 133/62
[2020-05-27] VITALS: BP 115/55
[2020-05-27 04:00] VITALS: BP 134/66
[2020-05-27] MEDS: LEVOTHYROXINE 0.025 MG TAB PO SCH (06:20)
[2020-05-27 08:00] VITALS: BP 120/57
[2020-05-27 08:48] LABS: ANION GAP 14.7 (8-16); CARBON DIOXIDE 26.8 mmol/L (21-32); CHLORIDE 98 mmol/L (98-107); GLUCOSE 92 mg/dL (74-106); POTASSIUM 5.5 mmol/L (3.5-5.1); SODIUM SERUM 134 mmol/L (136-145)
[2020-05-27 08:55] LABS: BASOPHILS % (AUTO) 0.2 % (0.0-2.0); EOSINOPHILS % (AUTO) 0.1 % (0.0-4.0); HEMATOCRIT 41.3 % (36-52); HEMOGLOBIN 13.4 g/dL (12.0-18.0); LYMPHOCYTES # (AUTO) 0.4 K/uL (2.0-11.5); LYMPHOCYTES % (AUTO) 8.3 % (20.5-51.1); MEAN CORPUSCULAR HEMOGLOBIN 30 pg (27-31); MEAN CORPUSCULAR HGB CONC 33 g/dL (33-37); MEAN CORPUSCULAR VOLUME 92.3 fL (80-94); MONOCYTES # (AUTO) 0.3 K/uL (0.8-1.0); MONOCYTES % (AUTO) 5.4 % (1.7-9.3); NEUTROPHILS # (AUTO) 4.6 K/uL (1.8-7.7); PLATELET COUNT (AUTO) 185 K/uL (140-450); RED BLOOD CELL COUNT(AUTO) 4.48 MIL/uL (4.20-6.10); RED CELL DISTRIBUTION WIDTH 16.6 % (11.6-13.7); WHITE BLOOD COUNT (AUTO) 5.3 K/uL (4.8-10.8)
[2020-05-27] MEDS: hydrALAZINE 25 MG TAB PO SCH (09:00)
[2020-05-27] MEDS: carvediloL 12.5 MG TAB PO SCH ×2 (09:00→22:32)
[2020-05-27] MEDS: amLODIPine 5 MG TAB PO SCH (09:00)
[2020-05-27] MEDS: ASCORBIC ACID 500 MG TAB PO SCH (09:34)
[2020-05-27] MEDS: TAMSULOSIN 0.4 MG CAP PO SCH (09:35)
[2020-05-27] MEDS: VITAMIN D 400 IU TAB PO SCH (09:35)
--- NOTE | 2020-05-27 09:45 | NUR ---
ADMINISTERED PRESCRIBED MEDS PER MD ORDER. PATIENT CURRENTLY IN DIALYSIS, BP MEDS HELD. MEDICATION EDUCATION REINFORCEMENT NEEDED. SAFETY MEASURES IN PLACE. WILL CONT TO MONITOR.
[2020-05-27 12:00] VITALS: BP 118/64
[2020-05-27 13:03] LABS: CREATININE 9.6 mg/dL (0.6-1.3); UREA NITROGEN, BLOOD 91 mg/dL (7-18)
--- NOTE | 2020-05-27 13:50 | NUR ---
REC'D MESSAGE, PATIENT WANTS UPDATE ON D/C. CALLED [phone] TWICE, BOTH TIMES LINE BUSY. WILL TRY AGAIN.
--- NOTE | 2020-05-27 15:29 | NUR ---
HOURLY ROUNDING PERFORMED. PATIENT IS SLEEPING, VISIBLE RISE AND FALL OF CHEST NOTED. NO SIGNS OF DISTRESS. SAFETY MEASURES IN PLACE. WILL CONT TO MONITOR.
[2020-05-27 16:00] VITALS: BP 123/69
[2020-05-27] MEDS: levoFLOXacin 500 MG TAB PO SCH (17:36)
--- NOTE | 2020-05-27 17:39 | NUR ---
ADMINISTERED PRESCRIBED MEDS PER MD ORDER. PATIENT TOLERATED WELL. MEDICATION EDUCATION REINFORCEMENT NEEDED DUE TO LANGUAGE BARRIER. SAFETY MEASURES IN PLACE. WILL CONT TO MONITOR.
--- NOTE | 2020-05-27 19:30 | NUR ---
RECEIVED ENDORSEMENT FROM AM PETRONA RN, ON 2L NC, NO SOB, ABLE TO MAKE NEEDS KNOWN, SAFETY MEASURES IN PLACE, PLAN OF CARE DISCUSSED, CALL LIGHT WITHIN REACH.
[2020-05-27 20:00] VITALS: BP 180/80
--- NOTE | 2020-05-27 22:35 | NUR ---
DUE MEDS GIVEN, CALL LIGHT WITHIN REACH. NO SOB
[2020-05-27] MEDS ORDERED: MEROPENEM 500 MG in NACL 0.9% 50 ML IV SCH (23:00)
[2020-05-27] MEDS ORDERED: MEROPENEM 500 MG VIAL IV ONE (23:53)
[2020-05-28] VITALS: BP_SYST 156; BP_SYST 169; BP_DIAS 74; BP_DIAS 75
[2020-05-28 04:00] VITALS: BP 152/68
[2020-05-28] MEDS: LEVOTHYROXINE 0.025 MG TAB PO SCH (06:36)
--- NOTE | 2020-05-28 06:41 | NUR ---
SYNTHROID PO GIVEN, TOLERATED WELL, AROUSABLE TO VERBAL, NO DISTRESS, CALL LIGHT WITHIN REACH.
[2020-05-28 07:15] LABS: BASOPHILS % (AUTO) 0.2 % (0.0-2.0); HEMOGLOBIN 12.2 g/dL (12.0-18.0); LYMPHOCYTES # (AUTO) 0.4 K/uL (2.0-11.5); LYMPHOCYTES % (AUTO) 7.3 % (20.5-51.1); MEAN CORPUSCULAR HEMOGLOBIN 30 pg (27-31); MEAN CORPUSCULAR HGB CONC 32 g/dL (33-37); MEAN CORPUSCULAR VOLUME 92.3 fL (80-94); MONOCYTES # (AUTO) 0.4 K/uL (0.8-1.0); MONOCYTES % (AUTO) 7.5 % (1.7-9.3); NEUTROPHILS # (AUTO) 4.8 K/uL (1.8-7.7); PLATELET COUNT (AUTO) 171 K/uL (140-450); RED BLOOD CELL COUNT(AUTO) 4.11 MIL/uL (4.20-6.10); RED CELL DISTRIBUTION WIDTH 16.6 % (11.6-13.7); WHITE BLOOD COUNT (AUTO) 5.6 K/uL (4.8-10.8)
[2020-05-28 07:38] LABS: ANION GAP 17.5 (8-16); CARBON DIOXIDE 27.6 mmol/L (21-32); CHLORIDE 100 mmol/L (98-107); GLUCOSE 85 mg/dL (74-106); POTASSIUM 5.1 mmol/L (3.5-5.1); SODIUM SERUM 140 mmol/L (136-145)
[2020-05-28 08:00] VITALS: BP 186/80
--- NOTE | 2020-05-28 08:00 | NUR ---
PT STABLE, NO SOB, NO DISTRESS, NO ACUTE CHANGES THE WHOLE SHIFT, BEDSIDE ENDORSEMENT GIVEN TO AM SHIFT RN FOR CONTINUITY OF CARE. SPOKE TO JUANY HAILE TO GET A CONSENT FOR SUPRAPUBIC CATH BUT JUANY WASN'T ABLE TO UNDERSTAND AND SPEAK SRI LANKAN, ALSO LEFT VOICEMAIL TO THE NEXT OF KIN. ENDORSED TO AM SHIFT RN RE: THE NEED FOR FAMILY CONSENT. AM NURSE SAID OK.
[2020-05-28 08:32] LABS: UREA NITROGEN, BLOOD 75 mg/dL (7-18)
[2020-05-28 08:33] LABS: CREATININE 8.1 mg/dL (0.6-1.3)
--- NOTE | 2020-05-28 08:42 | NUR ---
Received critical lab from lab at 0832, BUN 75, potassium 7.5. paged Dr. Camilo at 0836, waiting for reply from MD. watchmaking teacher informed.
--- NOTE | 2020-05-28 08:54 | NUR ---
Texted MD again at 0854, BUN 75, Calcium 75 (correction, not potassium). still waiting for response.
[2020-05-28] MEDS ORDERED: levoFLOXacin 250 MG TAB PO SCH (09:00)
--- NOTE | 2020-05-28 10:30 | NUR ---
Med Dr. Palmer at patient's room before 1100 and informed him of patient's BUN 75 and calcium 7.5. MD is aware of it.
[2020-05-28] MEDS: VITAMIN D 400 IU TAB PO SCH (10:43)
[2020-05-28] MEDS: TAMSULOSIN 0.4 MG CAP PO SCH (10:44)
[2020-05-28] MEDS: amLODIPine 5 MG TAB PO SCH (10:44)
[2020-05-28] MEDS: carvediloL 12.5 MG TAB PO SCH (10:45)
[2020-05-28] MEDS: hydrALAZINE 25 MG TAB PO SCH (10:45)
[2020-05-28] MEDS: ASCORBIC ACID 500 MG TAB PO SCH (10:57)
[2020-05-28] MEDS ORDERED: TAMS0.4C96 PO (11:48)
[2020-05-28] MEDS ORDERED: AMLO-3 PO (11:48)
[2020-05-28] MEDS ORDERED: CARV12.52 PO (11:48)
[2020-05-28] MEDS ORDERED: MEROPENEM IV (11:49)
[2020-05-28] MEDS ORDERED: ASPI-1205 PO (11:51)
[2020-05-28 12:00] VITALS: BP 150/61
--- NOTE | 2020-05-28 15:58 | NUR ---
Called patient's daughter Jael at 1558 to inform her about the pick up worker time, but only voice mail, left a message.
--- NOTE | 2020-05-28 18:30 | NUR ---
Discharge patient home with home health. Discharge paper and instruction given to patient's son, Hiram Ulloa. Armenian translation used to explained to patient's son and verbalized understanding. per patient's son, patient has ID and some medication when in the ED. Searched patient's room, called ED and searched for it, call security, search nursing station, but no where to be found. relief charge nurse and nursing supervisor sawing and assembly informed, but could not find it either. Patient also took the small oxygen tank, the large tank, nasal canula two long ones and two shorter ones. patient all her belongings. Was in the lobby explaining to patient's son with translation, searching for losing ID and medications for more than 40 minutes.
== END 2020-05-28 18:25 | disposition home health service (06) | DRG 137 ==
LOC: MED 14:06 → MTU 22:30
PROVIDERS: ADMIT Family Medicine; ATTEND Family Medicine
PROC: 5A1D70Z Performance of Urinary Filtration, Intermittent, Less than 6 Hours Per Day (ICD-10-PCS; principal; 2020-05-20)
PROC: 5A1D70Z Performance of Urinary Filtration, Intermittent, Less than 6 Hours Per Day (ICD-10-PCS; 2020-05-21)
PROC: 5A1D70Z Performance of Urinary Filtration, Intermittent, Less than 6 Hours Per Day (ICD-10-PCS; 2020-05-24)
PROC: 5A1D70Z Performance of Urinary Filtration, Intermittent, Less than 6 Hours Per Day (ICD-10-PCS; 2020-05-26)
PROC: 5A1D70Z Performance of Urinary Filtration, Intermittent, Less than 6 Hours Per Day (ICD-10-PCS; 2020-05-28)
DX: U07.1 COVID-19 (principal); N17.0 Acute kidney failure with tubular necrosis; N39.0 Urinary tract infection, site not specified; J12.82 Pneumonia due to coronavirus disease 2019; E87.5 Hyperkalemia; J90 Pleural effusion, not elsewhere classified; I12.0 Hypertensive chronic kidney disease with stage 5 chronic kidney disease or end stage renal disease; E03.9 Hypothyroidism, unspecified; N40.0 Benign prostatic hyperplasia without lower urinary tract symptoms; Z99.2 Dependence on renal dialysis; Z79.899 Other long term (current) drug therapy; R77.8 Other specified abnormalities of plasma proteins; R33.9 Retention of urine, unspecified; J96.00 Acute respiratory failure, unspecified whether with hypoxia or hypercapnia
CPT/HCPCS: 36415; 36600; 71045; 76604; 80048; 80053; 81001; 82150; 82550; 82728; 82803; 83036; 83605; 83615; 83690; 83735; 83880; 84100; 84439; 84443; 84484; 85025; 85379; 85384; 85610; 85651; 85730; 86140; 86900; 86901; 87040; 87081; 87086; 87420; 87804; 90935; 93005; 93971; 96365; 97110; 97112; 97116; 97161-GP; 97530; 99291; J0456; J0696; J1100; J1644; J1956; J2185; J3475; J7030; J7060; U0003